=== PATIENT | male | born 1995 | race Caucasian/White ===

== ENCOUNTER 2024-05-14 14:13 | Emergency (ER) | payer MEDICARE, MEDICAID ==
[~2024-05-14] VITALS: Ht 188 cm; Wt 83.2 kg
[~2024-05-14 14:13] MED LIST: CLOZAPINE 25 MG oral disintegrating tablet PO SCH
[2024-05-14] MEDS ORDERED: clozapine 100mg tablet PO SCH (14:31)
[2024-05-14 14:57] LABS: BASOPHILS % (AUTO) 0 % (0-1); EOSINOPHILS % (AUTO) 0 % (0-6); HEMOGLOBIN 15.3 g/dl (14.0-17.9); LYMPHOCYTES # (AUTO) 0.7 X10'3 (1.1-4.8); LYMPHOCYTES % (AUTO) 11.2 % (21-51); MEAN CORPUSCULAR HEMOGLOBIN 29.6 PG (27.0-31.0); MEAN CORPUSCULAR VOLUME 87.1 FL (78-98); MEAN PLATELET VOLUME 8.5 FL (7.4-10.4); MONOCYTES # (AUTO) 0.5 X10'3 (0-0.9); MONOCYTES % (AUTO) 8.4 % (2-12); NEUTROPHILS # (AUTO) 5.2 X10'3 (1.8-7.7); NEUTROPHILS % (AUTO) 80.4 % (42-75); PLATELET COUNT 258 X10'3 (140-440); RED BLOOD COUNT 5.17 X10'6 (4.70-6.10); RED CELL DISTRIBUTION WIDTH 13.8 % (11.5-14.5); WHITE BLOOD COUNT 6.5 X10'3 (4.5-11.0)
[2024-05-14 15:02] LABS: ALANINE AMINOTRANSFERASE 28 U/L (12-78); ALBUMIN 4.7 G/DL (3.4-5.0); ALBUMIN/GLOBULIN RATIO 1.3 (1.1-1.5); ALKALINE PHOSPHATASE 95 IU/L (46-116); ANION GAP 5 (8-16); ASPARTATE AMINO TRANSFERASE 12 U/L (10-37); BILIRUBIN,TOTAL 0.3 MG/DL (0.1-1.0); BLOOD UREA NITROGEN 10 MG/DL (7-18); BUN/CREATININE RATIO 13.9 (10.0-20.0); CALCIUM 9.8 MG/DL (8.5-10.1); CHLORIDE 103 MMOL/L (99-107); CREATININE 0.72 MG/DL (0.60-1.10); GLUCOSE 101 MG/DL (70-104); POTASSIUM 3.7 MMOL/L (3.5-5.1); SODIUM 141 MMOL/L (135-145); TOTAL CARBON DIOXIDE 33.5 MMOL/L (24-32); TOTAL PROTEIN 8.2 G/DL (6.4-8.2); eCRCL 179 ML/MIN; eGFR > 90 ML/MIN
[2024-05-14] MEDS ORDERED: CLOZAPINE 25 MG oral disintegrating tablet PO ONE (16:05)
[2024-05-14] MEDS: lithium carbonate 300mg SR tablet (LithoBID) PO ONE (16:15)
[2024-05-14] MEDS: clozapine 100mg tablet PO ONE (16:15)
[2024-05-14 17:23] VITALS: TEMP 98.8
[2024-05-14 17:44] VITALS: BP 140/79; PULSE 94; RESP 16; O2SAT 94
[2025-05-14] MEDS ORDERED: clozapine 100mg tablet PO SCH (16:00)
== END 2024-05-14 17:46 | disposition home or self-care (01) ==
LOC: ER 14:14
DX: Z00.00 Encounter for general adult medical examination without abnormal findings (principal); R46.89 Other symptoms and signs involving appearance and behavior; Z88.2 Allergy status to sulfonamides
CPT/HCPCS: 36415; 80053; 80178; 85025; 99283